=== PATIENT | female | born 1965 | race American Indian/Alaskan Native ===

== ENCOUNTER 2018-05-28 08:16 | Outpatient (CLI) | payer OTHER ==
--- NOTE | 2018-05-28 09:24 | Ultrasound Report ---
LEFT DIGITAL DIAGNOSTIC MAMMOGRAM and LEFT BREAST ULTRASOUND: 05/28/18 08:16:00 CLINICAL: Recall for asymmetries. COMPARISON:03/12/18 FINDINGS: Spot compression MLO and CC views were performed.Partially circumscribed oval densities persist on the MLO view but only one is identified on the CC view. Ultrasound of the left breast (including all four quadrants and the retroareolar area) was performed and demonstrated benign cysts which correlate with the mammographic densities. An oval anechoic cyst at 4 o'clock 9 cm from the nipple measures 10 x 6 x 9 mm. There is also a cluster of tiny cysts adjacent to a wall of this cyst. An oval benign cyst at 10 o'clock 5 cm from the nipple is a 7 x 4 x 6 mm. No solid mass or shadowing. IMPRESSION: Benign cysts of the left breast and no suspicious finding. BI-RADS CATEGORY: 2 - - Benign RECOMMENDATION: Routine mammographic screening in one year. ACR BI-RADS MAMMOGRAPHIC CODES: 0 = Needs additional imaging evaluation; 1 = Negative; 2 = Benign; 3 = Probably benign; 4 = Suspicious; 5 = Malignant; 6 = Known biopsy-proven malignancy COMMENT: 1. Dense breast tissue, i.e., adenosis, fibrocystic changes, etc., may obscure an underlying neoplasm. 2. Approximately 10% of cancers are not detected with mammography. 3. A negative mammography report should not delay biopsy if a clinically suspicious mass is present. COMMENT: Patient follow-up letters are generated by our [email or web address] application.
== END 2018-05-28 08:17 | disposition home or self-care (01) ==
LOC: SPVWC 08:16
PROVIDERS: ATTEND Urology
DX: N60.02 Solitary cyst of left breast (principal)